=== PATIENT | female | born 1995 | race Caucasian/White ===

== ENCOUNTER → 2023-02-23 | Outpatient (CLI) | payer OTHER ==
[~2023-02-23] MED LIST: cefTRIAXone 500 MG VIAL IM NR
[2023-02-23 10:13] VITALS: BP 109/77; PULSE 96; RESP 16; TEMP 97.9
== END ==
LOC: PROCWHC3 09:46
PROVIDERS: ATTEND Physician Assistant
DX: O98.212 Gonorrhea complicating pregnancy, second trimester (principal)
CPT/HCPCS: 96372; J0696

== ENCOUNTER 2023-06-19 10:47 | Inpatient (IN) | payer OTHER ==
[2023-06-19] MEDS ORDERED: TERBUTALINE 1 MG/ML VIAL SQ PRN (11:25)
[2023-06-19] MEDS ORDERED: miSOPROStoL 200 MCG TAB PO PRN (11:25)
[2023-06-19] MEDS ORDERED: LIDOCAINE 0.5% (PF) 5 MG/ML (50 ML SDV) SQ PRN (11:25)
[2023-06-19] MEDS ORDERED: TRANEXAMIC 1,000 MG/100ML-NACL 1,000 MG in EMPTY BAG 1 BAG IV PRN (11:25)
[2023-06-19] MEDS ORDERED: CARBOPROST TROMETHAMINE 250 MCG/ML 1 ML AMP IM PRN (11:25)
[2023-06-19] MEDS ORDERED: OXYTOCIN 10 UNIT/ML 1 ML VIAL IM PRN (11:25)
[2023-06-19] MEDS ORDERED: METHYLERGONOVINE 0.2 MG/ML 1 ML AMP IM PRN (11:25)
[2023-06-19] MEDS ORDERED: OXYTOCIN 30 UNITS/500 ML NS 30 UNIT in SALINE 1 500ML.BAG IV SCH (11:30)
[2023-06-19] MEDS: LACTATED RINGERS 1,000 ML IV SCH ×2 (11:50→14:03)
[2023-06-19 12:02] LABS: Basophils # (A) 0.1 k/uL (0-0.2); Basophils % (A) 0 %; Eosinophils # (A) 0.4 k/uL (0-0.7); Eosinophils % (A) 3 %; HCT 36.8 % (34.0-46.0); HGB 12.6 gm/dL (11.4-16.0); Lymphocytes # (A) 2.4 k/uL (1.0-4.8); Lymphocytes % (A) 17 %; MCH 32.3 pg (25.0-35.0); MCHC 34.4 g/dL (31.0-37.0); MCV 93.9 fL (80.0-100.0); Mean Platelet Volume 8.4; Monocytes # (A) 0.7 k/uL (0-1.0); Monocytes % (A) 5 %; Neutrophils # (A) 10.7 k/uL (1.3-7.7); Neutrophils % (A) 74 %; Platelet Count 284 k/uL (150-450); RBC 3.92 m/uL (3.80-5.40); RDW 13.3 % (11.5-15.5); WBC 14.5 k/uL (3.8-10.6)
--- NOTE | 2023-06-19 17:26 | P.PROBDLV ---
Vaginal Delivery Note - . Vaginal Delivery Note: Findings: Viable male infant delivered at 1710, weight of 6 lbs. 12 oz., Apgars of 9 and 9 at one and 5 minutes respectively. 27-year-old 1 para 0 at 37-3/7 weeks presented to labor and delivery with complaints of spontaneous rupture of membranes this morning. Patient was admitted to labor and delivery with grossly ruptured membranes appreciated. Patient was noted to be 3 cm. Patient was admitted and Pitocin augmentation of labor was begun. Patient progressed through labor eventually becoming uncomfortable and requesting epidural placement. Epidural was placed without difficulty by the anesthesia department. Patient made good progress towards complete. Once completely dilated patient began pushing. With excellent maternal effort patient had delivery of the head over intact perineum followed by the anterior/posterior shoulder and body. A spontaneous cry was noted at . After two-minute delayed the umbilical cord was doubly clamped and cut. The placenta was then delivered spontaneously intact with a three-vessel cord being noted. On inspection the patient's vaginal vault a small hymenal nursery vaginal laceration was appreciated. This was injected with lidocaine and repaired in usual fashion with 3-0 Rapide. Hemostasis was then noted. On further inspection a left lateral labia laceration was appreciated no bleeding was appreciated. This was not repaired. Uterus is noted to be firm and below the umbilicus. All counts noted correct 2 at the end of the delivery. Patient infant tolerated delivery well and are resting comfortably. Estimated blood loss 100 mL
[2023-06-19] MEDS ORDERED: diphenhydrAMINE 25 MG CAP PO PRN (17:27)
[2023-06-19] MEDS ORDERED: diphenhydrAMINE 50 MG CAP PO PRN (17:27)
[2023-06-19] MEDS ORDERED: HYDROCORTISONE 2.5% RECTAL CREAM 30 GM TUBE RECTAL PRN (17:27)
[2023-06-19] MEDS ORDERED: LANOLIN CREAM 5 GM TUBE TOPICAL PRN (17:27)
[2023-06-19] MEDS ORDERED: diphenhydrAMINE 50 MG/ML 1 ML VIAL IVP PRN ×2 (17:27)
[2023-06-19] MEDS ORDERED: ACETAMINOPHEN TAB 325 MG TAB PO PRN (17:27)
[2023-06-19] MEDS ORDERED: SIMETHICONE 80 MG CHEWABLE PO PRN (17:27)
[2023-06-19] MEDS ORDERED: ZOLPIDEM 5 MG TAB PO PRN (17:27)
--- NOTE | 2023-06-19 17:27 | P.HPOB ---
History of Present Illness H&P Date: 06/19/23 Chief Complaint: IUP at 37 and 3/7, spontaneous rupture of membranes Toward a 7-year-old 1 para 0 at 37-3/7 weeks that presented to labor and delivery with complaints of spontaneous rupture of membranes this morning. Patient states she ruptured around 9 am this morning and noted the fluid to be clear in nature. Patient has been receiving routine care with myself which has been essentially uncomplicated. Patient did have a diagnosis of gonorrhea on her initial OB visit which was treated with ceftriaxone. Is a nonsmoker and admits to THC use para Patient has noted good movement, growth ultrasound was performed with normal biometry. On bloodwork this patient's type of O+, rubella status immune, hepatitis B surface engine is negative, HIV is negative, RPR is nonreactive, group beta strep cultures are negative. Review of Systems Constitutional: Denies chills, Denies fatigue, Denies fever Ears, nose, mouth and throat: Denies headache Cardiovascular: Reports leg edema Respiratory: Denies dyspnea Gastrointestinal: Denies constipation, Denies diarrhea, Denies nausea, Denies vomiting Genitourinary: Reports Past Medical History Past Medical History: Asthma History of Any Multi-Drug Resistant Organisms: None Reported Past Surgical History: Cholecystectomy Additional Past Surgical History / Comment(s): BILATERAL WISDOM TEETH REMOVED. K IDNEY STONES- STENT PLACED AND NOT SURE WHICH SIDE. Past Anesthesia/Blood Transfusion Reactions: No Reported Reaction Past Psychological History: Anxiety, Depression Smoking Status: Current every day smoker Past Alcohol Use History: None Reported Past Drug Use History: Marijuana - Past Family History Mother Additional Family Medical History / Comment(s): kidney stones Father Family Medical History: AFIB, Congestive Heart Failure (CHF), Sleep Apnea/CPAP/BIPAP Medications and Allergies Home Medications Medication Instructions Recorded Confirmed Type Vit No.179/Iron/Folic 1 tab PO DAILY 02/23/23 05/30/23 History [ Tablet] Allergies Allergy/AdvReac Type Severity Reaction Status Date / Time codeine AdvReac Severe Nausea & Verified 06/19/23 11:23 Vomiting Exam Osteopathic Statement: *. No significant issues noted on an osteopathic structural exam other than those noted in the History and Physical/Consult. 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 heart tones returned be category 1 and she is yoni irregularly. Results Result Diagrams: 06/19/23 11:50 Abnormal Lab Results - Last 24 Hours (Table) 06/19/23 Range/Units 11:50 WBC 14.5 H (3.8-10.6) k/uL Neutrophils # 10.7 H (1.3-7.7) k/uL Assessment and Plan (1) Term Current Visit: Yes Status: Acute Code(s): Z34.90 - ENCNTR FOR SUPRVSN OF NORMAL , UNSP, UNSP TRIMESTER SNOMED Code(s): 41388329 (2) SROM (spontaneous rupture of membranes) Current Visit: Yes Status: Acute Code(s): RXG1977 - SNOMED Code(s): 614234462 Plan: 27-year-old 1 para 0 at 37-3/7 weeks that presents to labor and delivery with complaints of spontaneous rupture of membranes. Patient is admitted for Pitocin augmentation of labor. Options for analgesia are discussed including epidural,nubain, Nitrous. Patient would like an epidural when appropriate. Anticipate spontaneous vaginal delivery.
[2023-06-19] MEDS: IBUPROFEN 600 MG TAB PO SCH (20:18)
[2023-06-20] MEDS: SENNOSIDES-DOCUSATE SODIUM 1 EACH TAB PO SCH ×2 (00:08→07:40)
[2023-06-20] MEDS: IBUPROFEN 600 MG TAB PO SCH ×4 (04:50→15:14)
[2023-06-20] MEDS: LACTATED RINGERS 1,000 ML IV SCH ×2 (07:53→14:27)
[2023-06-20 08:07] VITALS: TEMP 98.3
[2023-06-20] MEDS ORDERED: PRENATAL VIT-IRON-FOLIC ACID 1 EACH TABLET PO SCH (09:00)
--- NOTE | 2023-06-20 12:34 | P.DS ---
Providers Date of admission: 06/19/23 11:29 Expected date of discharge: 06/20/23 Attending physician: Aviva Byers Primary care physician: Stated None - Discharge Diagnosis(es) (1) Term Current Visit: Yes Status: Acute (2) SROM (spontaneous rupture of membranes) Current Visit: Yes Status: Acute (3) Status post normal vaginal delivery Current Visit: Yes Status: Acute (4) Obstetric vaginal laceration with first degree perineal laceration Current Visit: Yes Status: Acute Hospital Course: This is a 27-year-old 1 para 0 at 37-3/7 weeks that presented to labor and delivery yesterday 06/19 with complaints of spontaneous rupture of membranes that morning. Patient noted fluid to be clear in nature. Patient been receiving routine care which had been essentially uncomplicated. Patient is a nonsmoker and admits to THC use. Patient was admitted and noted to be 3 cm patient was counseled on Pitocin augmentation of labor given rupture of membranes. Patient agreed and Pitocin was begun per hospital protocol. Patient progressed through labor eventually becoming uncomfortable and requesting epidural placement. Epidural was placed without difficulty by the anesthesia department. Patient progressed quickly to complete and began pushing. With excellent maternal effort had a normal spontaneous vaginal delivery of a viable male infant at 1710, weight of 6 lbs. 12 oz., Apgars of 9 and 9 at one and 5 minutes respectively. Patient did sustain a first 3 vaginal laceration during delivery. This was repaired in the usual fashion with 3-0 Rapide. Patient's post course has been uneventful. On this day #1 she is involuting and voiding without difficulty. She is tolerating a regular diet without nausea or vomiting. She states her pain is well-controlled. She would like discharge home at 24 hours if possible. Patient Condition at Discharge: Good Plan - Discharge Summary New Discharge Prescriptions: No Action Vit No.179/Iron/Folic [ Tablet] 1 tab PO DAILY Discharge Medication List Vit No.179/Iron/Folic [ Tablet] 1 tab PO DAILY 02/23/23 [History] Follow up Appointment(s)/Referral(s): Aviva Byers DO [Doctor of Osteopathic Medicine] - 1 Week Patient Instructions/Handouts: Vaginal Delivery (GEN), Vaginal Delivery (DC) Activity/Diet/Wound Care/Special Instructions: No tub baths or intercourse until 6 weeks . Patient is to call the office and make a routine visit for 6 weeks. Patient can expect moderate lochia . Patient is counseled on bleeding precautions. Patient is to call the office should she have any concerns prior to her six-week check. Discharge Disposition: HOME SELF-CARE
[2023-06-20 15:46] VITALS: BP 113/71; PULSE 94; RESP 16
[2023-06-20] MEDS ORDERED: CLOTRIMAZOLE/BETAMETH 1-0.05% CREAM 45 GM TUBE TOPICAL SCH (21:00)
== END 2023-06-20 17:48 | disposition home or self-care (01) | DRG 560 ==
LOC: FBPOP 10:47 → 4FBP 11:29
PROVIDERS: ADMIT Obstetrics & Gynecology Obstetrics; ATTEND Obstetrics & Gynecology Obstetrics
PROC: 10E0XZZ Delivery of Products of Conception, External Approach (ICD-10-PCS; principal; 2023-06-19)
PROC: 0HQ9XZZ Repair Perineum Skin, External Approach (ICD-10-PCS; 2023-06-19)
PROC: 3E033VJ Introduction of Other Hormone into Peripheral Vein, Percutaneous Approach (ICD-10-PCS; 2023-06-19)
DX: O42.92 Full-term premature rupture of membranes, unspecified as to length of time between rupture and onset of labor (principal); F32.A Depression, unspecified; F17.210 Nicotine dependence, cigarettes, uncomplicated; O70.0 First degree perineal laceration during delivery; F41.9 Anxiety disorder, unspecified; J45.909 Unspecified asthma, uncomplicated; O99.334 Smoking (tobacco) complicating childbirth; O99.52 Diseases of the respiratory system complicating childbirth; O99.344 Other mental disorders complicating childbirth; Z37.0 Single live birth; Z3A.37 37 weeks gestation of pregnancy; Z87.442 Personal history of urinary calculi; Z82.49 Family history of ischemic heart disease and other diseases of the circulatory system; Z88.5 Allergy status to narcotic agent; Z90.49 Acquired absence of other specified parts of digestive tract
CPT/HCPCS: 59025; 84112; 85025; 86850; 86900; 86901; 99213

== ENCOUNTER 2025-01-24 06:38 | Emergency (ER) | payer OTHER ==
[2025-01-24 06:52] VITALS: RESP 16
[2025-01-24] MEDS: ACETAMINOPHEN TAB 325 MG TAB PO STA (08:17)
--- NOTE | 2025-01-24 08:30 | ED ---
General Adult HPI - General Chief complaint: Vaginal Bleeding Stated complaint: Vaginal Bleeding Time Seen by Provider: 01/24/25 06:50 Source: patient, RN notes reviewed Mode of arrival: ambulatory Limitations: no limitations - History of Present Illness Initial comments: This is a 29-year-old female, [id number], presenting to the emergency department for complaints of increased vaginal bleeding today. she had a medically induced on 01/08/2025 where she took 2 medications Patient was 8 weeks gestation when she took her medication) , does not remember the name. Reports that the 3 days after taking the medication she had a copious amount of vaginal bleeding with passage of large clots. After this time the bleeding significantly decreased. today while she was at work she began to experience vaginal bleeding with uterine cramping. denies dizziness, lightheadedness, or difficulty in breathing. she states that she has been having mild dysuria as well. follows with Dr. Byers. - Related Data Home Medications Medication Instructions Recorded Confirmed Vit No.179/Iron/Folic 1 tab PO DAILY 02/23/23 05/30/23 [ Tablet] Allergies Allergy/AdvReac Type Severity Reaction Status Date / Time codeine AdvReac Severe Nausea & Verified 01/24/25 06:47 Vomiting Review of Systems ROS Statement: Those systems with pertinent positive or pertinent negative responses have been documented in the HPI. ROS Other: All systems not noted in ROS Statement are negative. Past Medical History Past Medical History: Asthma History of Any Multi-Drug Resistant Organisms: None Reported Past Surgical History: Cholecystectomy Additional Past Surgical History / Comment(s): BILATERAL WISDOM TEETH REMOVED. KIDNEY STONES- STENT PLACED AND NOT SURE WHICH SIDE. Past Anesthesia/Blood Transfusion Reactions: No Reported Reaction Past Psychological History: Anxiety, Depression Smoking Status: Current every day smoker, Vaper Past Alcohol Use History: None Reported Past Drug Use History: Marijuana - Past Family History Mother Additional Family Medical History / Comment(s): kidney stones Father Family Medical History: AFIB, Congestive Heart Failure (CHF), Sleep Apnea/CPAP/BIPAP General Exam Limitations: no limitations General appearance: alert, in no apparent distress ENT exam: Present: normal exam, mucous membranes moist Neck exam: Present: normal inspection. Absent: tenderness, meningismus, lymphadenopathy Respiratory exam: Present: normal lung sounds bilaterally. Absent: respiratory distress, wheezes, rales, rhonchi, stridor Cardiovascular Exam: Present: regular rate, normal rhythm, normal heart sounds. Absent: systolic murmur, diastolic murmur, rubs, gallop, clicks GI/Abdominal exam: Present: soft, tenderness (uterine cramping), normal bowel sounds. Absent: distended, guarding, rebound, rigid Extremities exam: Present: normal inspection, full ROM, normal capillary refill. Absent: tenderness, pedal edema, joint swelling, calf tenderness Back exam: Present: normal inspection. Absent: CVA tenderness (R), CVA tenderness (L) Skin exam: Present: warm, dry, intact, normal color. Absent: rash Course Vital Signs 01/24/25 01/24/25 06:47 10:00 Temperature 98.3 F 98.1 F Pulse Rate 82 80 Respiratory 16 16 Rate Blood Pressure 134/82 129/86 O2 Sat by Pulse 97 99 Oximetry Medical Decision Making - Medical Decision Making Was pt. sent in by a medical professional or institution (, PA, DATA CENTER SOLUTIONS ARCHITECT, urgent care, hospital, or half-way...) When possible be specific @ -No Did you speak to anyone other than the patient for history (EMS, parent, family, police, friend...)? What history was obtained from this source @ -No Did you review nursing and triage notes (agree or disagree)? Why? @ -I reviewed and agree with nursing and triage notes Were old charts reviewed (outside hosp., previous admission, EMS record, old EKG, old radiological studies, urgent care reports/EKG's, half-way records)? Report findings @ -No old charts were reviewed Differential Diagnosis (chest pain, altered mental status, abdominal pain women, abdominal pain men, vaginal bleeding, weakness, fever, dyspnea, syncope, headache, dizziness, GI bleed, back pain, seizure, CVA, palpatations, mental health, musculoskeletal)? @ -Differential Vaginal Bleeding: Spontaneous , threatened , molar , ectopic , bloody show, incompetent cervix, abruptioplacenta, placenta previa, uterine rupture, dysfunctional uterine bleeding, hemorrhage, uterine fibroids, this is not meant to be an all-inclusive list. EKG interpreted by me (3pts min.). @ -None X-rays interpreted by me (1pt min.). @ -None done CT interpreted by me (1pt min.). @ -None done U/S interpreted by me (1pt. min.). @ -Transvaginal ultrasound reveals Debris within the endometrial canal consistent with retained products of conception, ovaries not visualized due to bowel gas What testing was considered but not performed or refused? (CT, X-rays, U/S, labs)? Why? @ -None What meds were considered but not given or refused? Why? @ -None Did you discuss the management of the patient with other professionals (professionals i.e. , PA, DATA CENTER SOLUTIONS ARCHITECT, lab, RT, psych nurse, social insurance specialist, county home demonstration agent, teacher, fiscal officer, classification case manager)? Give summary @ -No Was smoking cessation discussed for >3mins.? @ -No Was critical care preformed (if so, how long)? @ -No Were there social determinants of health that impacted care today? How? (Homelessness, low income, unemployed, alcoholism, drug addiction, transportation, low edu. Level, literacy, decrease access to med. care, long-term, rehab)? @ -No Was there de-escalation of care discussed even if they declined (Discuss DNR or withdrawal of care, Hospice)? DNR status @ -No What co-morbidities impacted this encounter? (DM, HTN, Smoking, COPD, CAD, Cancer, CVA, ARF, Chemo, Hep., AIDS, mental health diagnosis, sleep apnea, morbid obesity)? @ -None Was patient admitted / discharged? Hospital course, mention meds given and route, prescriptions, significant lab abnormalities, going to OR and other pert inent info. @ -Discharge. 29-year-old female presents emergency department with heavy vag inal bleeding after medically induced . Patient is overall well- appearing. She has mild uterine/suprapubic tenderness to palpation. Sprayed with dose of Tylenol. Laboratory testing is unremarkable, stable hemoglobin at 11.9. Urinalysis consistent with blood and white cells likely secondary to contamination. Ultrasound reveals thickened endometrium. physical exam vaginal bleeding, closed cervical os. Patient is stable for discharge with close follow-up outpatient with OB. Return parameters discussed. Patient has verbalized understanding. Case discussed with Dr. Mccall Undiagnosed new problem with uncertain prognosis? @ -No Drug Therapy requiring intensive monitoring for toxicity (Heparin, Nitro, Insulin, Cardizem)? @ -No Were any procedures done? @ -No Diagnosis/symptom? @ -Menorrhagia, bleeding after medically induced Acute, or Chronic, or Acute on Chronic? @ -Acute Uncomplicated (without systemic symptoms) or Complicated (systemic symptoms)? @ -uncomplicated Side effects of treatment? @ -No Exacerbation, Progression, or Severe Exacerbation? @ -No Poses a threat to life or bodily function? How? (Chest pain, [place], [place], pneumonia, PE, COPD, DKA, ARF, appy, cholecystitis, CVA, Diverticulitis, Homicidal, Suicidal, threat to staff... and all critical care pts) @ -No - Lab Data Result diagrams: 01/24/25 08:22 01/24/25 08:22 Lab Results 01/24/25 01/24/25 01/24/25 Range/Units 08:12 08:22 08:22 WBC 7.98 (4.50-10.00) 10*3/uL RBC 3.79 L (4.10-5.20) 10*6/uL Hgb 11.9 L (12.0-15.0) g/dL Hct 34.6 L (37.2-46.3) % MCV 91.3 (80.0-97.0) fL MCH 31.4 (27.0-32.0) pg MCHC 34.4 (32.0-37.0) g/dL Plt Count 323 (140-440) 10*3/uL MPV 9.5 (9.5-12.2) fL Immature Gran % (Auto) 0.1 % Neutrophils % 57.2 % Lymphocytes % 27.4 % Monocytes % 9.0 % Eosinophils % 4.9 % Basophils % 1.4 % Immature Gran # 0.01 (0.00-0.04) 10*3/uL Neutrophils # 4.56 (1.80-7.70) 10*3/uL Lymphocytes # 2.19 (0.90-5.00) 10*3/uL Monocytes # 0.72 (0.20-1.00) 10*3/uL Eosinophils # 0.39 H (0.04-0.35) 10*3/uL Basophils # 0.11 H (0.00-0.10) 10*3/uL Sodium 138 (137-145) mmol/L Potassium 4.3 (3.5-5.1) mmol/L Chloride 102 (98-107) mmol/L Carbon Dioxide 27 (22-30) mmol/L Anion Gap 9 mmol/L BUN 6 L (7-17) mg/dL Creatinine 0.61 (0.52-1.04) mg/dL Est GFR (CKD-EPI)AfAm >90 (>60 ml/min/1.73 sqM) Est GFR (CKD-EPI)NonAf >90 (>60 ml/min/1.73 sqM) Glucose 82 (74-99) mg/dL Calcium 9.5 (8.4-10.2) mg/dL Total Bilirubin 0.7 (0.2-1.3) mg/dL AST 17 (14-36) U/L ALT 13 (4-34) U/L Alkaline Phosphatase 59 (38-126) U/L Total Protein 6.8 (6.3-8.2) g/dL Albumin 4.0 (3.5-5.0) g/dL HCG, Quant 234.1 mIU/mL Urine Color Light Red Urine Appearance Cloudy H (Clear) Urine pH 6.0 (5.0-8.0) Ur Specific [place] 1.024 (1.001-1.035) Urine Protein Trace H (Negative) Urine Glucose (UA) Negative (Negative) Urine Ketones Negative (Negative) Urine Blood Large H (Negative) Urine Nitrite Negative (Negative) Urine Bilirubin Negative (Negative) Urine Urobilinogen 2.0 (<2.0) mg/dL Ur Leukocyte Esterase Large H (Negative) Urine RBC >182 H (0-5) /hpf Urine WBC 30 H (0-5) /hpf Ur Squamous Epith Cells 18 H (0-4) /hpf Urine Bacteria Rare H (None) /hpf Urine Mucus Many H (None) /hpf Blood Type Blood Type Recheck Bld Type Recheck Status Antibody Screen Spec Expiration Date 01/24/25 Range/Units 08:22 WBC (4.50-10.00) 10*3/uL RBC (4.10-5.20) 10*6/uL Hgb (12.0-15.0) g/dL Hct (37.2-46.3) % MCV (80.0-97.0) fL MCH (27.0-32.0) pg MCHC (32.0-37.0) g/dL Plt Count (140-440) 10*3/uL MPV (9.5-12.2) fL Immature Gran % (Auto) % Neutrophils % % Lymphocytes % % Monocytes % % Eosinophils % % Basophils % % Immature Gran # (0.00-0.04) 10*3/uL Neutrophils # (1.80-7.70) 10*3/uL Lymphocytes # (0.90-5.00) 10*3/uL Monocytes # (0.20-1.00) 10*3/uL Eosinophils # (0.04-0.35) 10*3/uL Basophils # (0.00-0.10) 10*3/uL Sodium (137-145) mmol/L Potassium (3.5-5.1) mmol/L Chloride (98-107) mmol/L Carbon Dioxide (22-30) mmol/L Anion Gap mmol/L BUN (7-17) mg/dL Creatinine (0.52-1.04) mg/dL Est GFR (CKD-EPI)AfAm (>60 ml/min/1.73 sqM) Est GFR (CKD-EPI)NonAf (>60 ml/min/1.73 sqM) Glucose (74-99) mg/dL Calcium (8.4-10.2) mg/dL Total Bilirubin (0.2-1.3) mg/dL AST (14-36) U/L ALT (4-34) U/L Alkaline Phosphatase (38-126) U/L Total Protein (6.3-8.2) g/dL Albumin (3.5-5.0) g/dL HCG, Quant mIU/mL Urine Color Urine Appearance (Clear) Urine pH (5.0-8.0) Ur Specific [place] (1.001-1.035) Urine Protein (Negative) Urine Glucose (UA) (Negative) Urine Ketones (Negative) Urine Blood (Negative) Urine Nitrite (Negative) Urine Bilirubin (Negative) Urine Urobilinogen (<2.0) mg/dL Ur Leukocyte Esterase (Negative) Urine RBC (0-5) /hpf Urine WBC (0-5) /hpf Ur Squamous Epith Cells (0-4) /hpf Urine Bacteria (None) /hpf Urine Mucus (None) /hpf Blood Type O Positive Blood Type Recheck O Pos Bld Type Recheck Status No Antibody Screen NEGATIVE Spec Expiration Date 01/27/20252321 Disposition Clinical Impression: History of induced , Menorrhagia Disposition: HOME SELF-CARE Condition: Stable Instructions (If sedation given, give patient instructions): Menorrhagia (ED) Additional Instructions: Please return to the Emergency Department if symptoms worsen or any other concerns. Please follow-up with your OB in the next 1 to 3 days Is patient prescribed a controlled substance at d/c from ED?: No Referrals: None,Stated [Primary Care Provider] - 1-2 days Time of Disposition: 09:46
[2025-01-24 08:34] LABS: Basophils # (A) 0.11 10*3/uL (0.00-0.10); Basophils % (A) 1.4 %; Eosinophils # (A) 0.39 10*3/uL (0.04-0.35); Eosinophils % (A) 4.9 %; HCT 34.6 % (37.2-46.3); HGB 11.9 g/dL (12.0-15.0); Lymphocytes # (A) 2.19 10*3/uL (0.90-5.00); Lymphocytes % (A) 27.4 %; MCH 31.4 pg (27.0-32.0); MCHC 34.4 g/dL (32.0-37.0); MCV 91.3 fL (80.0-97.0); Mean Platelet Volume 9.5 fL (9.5-12.2); Monocytes # (A) 0.72 10*3/uL (0.20-1.00); Neutrophils # (A) 4.56 10*3/uL (1.80-7.70); Neutrophils % (A) 57.2 %; Platelet Count 323 10*3/uL (140-440); RBC 3.79 10*6/uL (4.10-5.20); RDW 12.7 % (11.5-14.5); WBC 7.98 10*3/uL (4.50-10.00)
[2025-01-24 08:53] LABS: ALT 13 U/L (4-34); AST 17 U/L (14-36); African American GFR (CKD) >90 (>60 ml/min/1.73 sqM); Alkaline Phosphatase 59 U/L (38-126); Anion Gap 9 mmol/L; Blood Urea Nitrogen 6 mg/dL (7-17); Calcium 9.5 mg/dL (8.4-10.2); Carbon Dioxide 27 mmol/L (22-30); Chloride 102 mmol/L (98-107); Glucose 82 mg/dL (74-99); Non-African American GFR(CKD) >90 (>60 ml/min/1.73 sqM); Potassium 4.3 mmol/L (3.5-5.1); Sodium 138 mmol/L (137-145); Total Bilirubin 0.7 mg/dL (0.2-1.3); Total Protein 6.8 g/dL (6.3-8.2)
[2025-01-24 08:58] LABS: Appearance,Urine Cloudy (Clear); Bacteria,Urine Rare /hpf; Bilirubin,Urine Negative (Negative); Blood,Urine Large (Negative); Color,Urine Light Red; Glucose,Urine (UA) Negative (Negative); Ketones,Urine Negative (Negative); Leukocyte Esterase,Urine Large (Negative); Mucus,Urine Many /hpf; Nitrite,Urine Negative (Negative); Protein,Urine Trace (Negative); RBC,Urine >182 /hpf (0-5); Specific Gravity,Urine 1.024 (1.001-1.035); Squamous Epithelial Cell,Urine 18 /hpf (0-4); WBC,Urine 30 /hpf (0-5)
[2025-01-24 09:10] LABS: HCG,Quantitative Serum 234.1 mIU/mL
--- NOTE | 2025-01-24 09:33 | US ---
EXAMINATION TYPE: US transvaginal DATE OF EXAM: 01/24/2025 COMPARISON: NONE CLINICAL INDICATION: Female, 29 years old with history of 01/08/25, bleeding, cramping; Aborti on pill on 01/08/25, bleeding and cramping since, worse today. Pt states she was 8 weeks gestation TECHNIQUE: Transvaginal (TV). Transvaginal sonographic images were medically necessary to better assess the following anatomy: Endo metrium Doppler imaging: Not performed. FINDINGS: Date of LMP: 10/17/24 EXAM MEASUREMENTS: Uterus: 8.2x4.5x5.2 cm Endometrial Stripe: 1.6 cm Right Ovary: Not visualized due to bowel gas. Left Ovary: Not visualized due to bowel gas. 1. Uterus: Anteverted wnl 2. Endometrium: complex debris within ?retained products of conception? 3. Right Ovary: Obscured by overlying bowel gas 4. Left Ovary: Obscured by overlying bowel gas 5. Bilateral Adnexa: Obscured by overlying bowel gas, prominent venous vessels left adnexa 6. Posterior cul-de-sac: wnl IMPRESSION: 1. Debris within the endometrial canal consistent with retained products of conception. 2. Ovaries not visualized due to bowel gas. 3. No free fluid in the cul-de-sac O-RADS 2021 [email or web address] [facility], Workstation: NETO 01/24/2025 9:31 AM
[2025-01-24 10:02] VITALS: BP 129/86; PULSE 80; TEMP 98.1
== END 2025-01-24 12:15 | disposition home or self-care (01) ==
LOC: EC 06:38
DX: O04.6 Delayed or excessive hemorrhage following (induced) termination of pregnancy (principal); O99.331 Smoking (tobacco) complicating pregnancy, first trimester; F17.290 Nicotine dependence, other tobacco product, uncomplicated; Z88.5 Allergy status to narcotic agent; Z3A.08 8 weeks gestation of pregnancy
CPT/HCPCS: 36415; 76830; 80053; 81001; 84702; 85025; 86850; 86900; 86901; 99284